=== PATIENT | male | born 1985 | race Hispanic/Latino ===

== ENCOUNTER 2017-04-26 15:21 | Day surgery (SDC) | payer SELFPAY ==
[~2017-04-26] VITALS: Ht 160 cm; Wt 59.1 kg
[2017-04-26] VITALS (9 sets, daily range): BP systolic 117–124; BP diastolic 51–79; PULSE 58–68; RESP 14–20; O2SAT 98–100
--- NOTE | 2017-04-26 15:51 | ED.REPORT ---
HPI-Abd Pain M Under 40 Date of Service Apr 26, 2017 ED Provider: Brian Fischer DO Patient is a 31 year old male who presents to the ED complaining of periumbilical abdominal pain onset 0700 this morning. Associated symptoms include pain that radiates the right lower quadrant and nausea. He denies dysuria, urinary frequency, vomiting, diarrhea or constipation. Nursing Notes Stated Complaint: STOMACH PAIN Chief Complaint: Male Abdominal Pain Nursing Notes Reviewed: Yes Allergies: Coded Allergies: No Known Allergies (Unverified , 04/26/17) No Active Prescriptions or Reported Meds General Time Seen by MD: 15:34 Chief Complaint Abdominal pain Hx Obtained From: Patient Arrived By: Walk-in Onset Occurred: 5 - 8 hours ago Symptom Duration: Since onset Location: : Epigastric Quality: Painful Radiation: : RLQ Severity: Current: Moderate Associated with: Denies: Constipation, Diarrhea, Urinary frequency, Vomiting Recent Healthcare: No recent doctor visit, No recent hospitalization Similar Sx Previous: No Past Medical History Past Medical History none reported Past Surgical History none reported Smoking History Never Smoker Social History Alcohol Use: Denies alcohol use Drug Use: Denies drug use Other Social History: Good social support Ambulatory Status Independent Review of Systems Constitutional: Denies: Chills, Fever Respiratory: Denies: Non-productive cough, Shortness of breath GI: Reports: Nausea, Denies: Constipation, Diarrhea, Vomiting Male: Denies Dysuria, Denies Urinary frequency Complete sys rev & neg: except as marked. Physical Exam Initial Vital Signs Vital Signs (First) Date Time Temp Pulse Resp B/P Pulse Ox O2 Delivery O2 Flow Rate FiO2 04/26/17 15:24 36.6 63 16 124/79 100 Room Air Initial VS: Reviewed General/Constitutional: Awake, Alert Respiratory / Chest: Atraumatic, Breath sounds NL, Breath sounds = bilat, No respiratory distress Cardiovascular: Heart rate NL, Regular rhythm, Heart sounds NL Abdomen: Atraumatic, Soft Tenderness/Guarding/Rebound: Positive: Tender RLQ... Back: Atraumatic, Full range of motion Head / Eyes: Atraumatic, Normocephalic, PERRL, EOMI Neurologic: Oriented X3, Speech NL, No motor deficits, No sensory deficits Skin: Atraumatic, Color NL, No rash, Warm, Dry Psychiatric: Affect NL, Mood NL Interpretation & Diagnostics Lab Results Interpretation Result Diagram: 04/26/17 1544 04/26/17 1544 Test 04/26/17 15:40 04/26/17 15:44 04/26/17 15:45 Hold Urine Received (Received) White Blood Count 13.9th/mm3 (3.8-10.1) Red Blood Count 4.85mil/mm3 (4.40-5.80) Hemoglobin 14.4g/dL (13.8-17.2) Hematocrit 41.3% (41.0-50.0) Mean Corpuscular Volume 85.2fL (81-100) Mean Corpuscular Hemoglobin 29.7pg (27.0-35.0) Mean Corpuscular Hemoglobin Concent 34.9% (32.0-37.0) Red Cell Distribution Width 12.6% (12.3-15.4) Platelet Count 237bil/L (150-400) Neutrophils (%) (Auto) 83.6% (40-74) Lymphocytes (%) (Auto) 10.0% (14-46) Monocytes (%) (Auto) 6.1% (4-12) Eosinophils (%) (Auto) 0.1% (0-5) Basophils (%) (Auto) 0.1% (0-3) Sodium Level 137mEq/L (134-144) Potassium Level 4.0mEq/L (3.5-5.2) Chloride Level 102mEq/L (97-108) Carbon Dioxide Level 20mmol/L (18-29) Blood Urea Nitrogen 18mg/dL (6-20) Creatinine 0.73mg/dL (0.76-1.27) Estimat Glomerular Filtration Rate 135mL/min (>59) Glucose Level 128mg/dL (60-99) Calcium Level 9.6mg/dL (8.5-10.1) Magnesium Level 2.0mg/dL (1.6-2.6) Total Bilirubin 0.3mg/dL (0.0-1.2) Aspartate Amino Transf (AST/SGOT) 25U/L (0-50) Alanine Aminotransferase (ALT/SGPT) 17U/L (0-44) Alkaline Phosphatase 70U/L (25-150) Total Protein 7.6g/dL (6.4-8.4) Albumin 4.6g/dL (3.4-5.0) Lipase 26U/L (13-60) Hold Hsieh Top Tube Received (Received) CT Abd / Pelvis Interpretation IMPRESSION: 1. The tip of the appendix is prominently enlarged (1.2 cm) with a more proximal appendicolith present. No surrounding inflammation is identified. However, mucosal enhancement of the appendix is seen. These findings are suspicious for an early tip appendicitis and clinical correlation is recommended. 2. No free fluid, fluid collection or free air. 3. Mild small bowel ileus. No bowel obstruction. 4. Low attenuation lesions within the liver probably represent hemangiomas. However, dedicated contrast-enhanced CT or MRI is recommended for further evaluation. Dictated by: Clinton Leblanc M.D. on 04/26/2017 at 16:09 Approved by: Clinton Leblanc M.D. on 04/26/2017 at 16:18 Interpretation / Wet Read by: Interpret - Radiologist Re-Eval/Medical Decision Re-Evaluation/Progress : Time of Eval: 17:20 Re-Evaluation/Progress Note: Discussed CT results and plan for admit. Patient understands and agrees to plan. All questions were addressed. Consultation : Referral / Consult Name: Timoteo Davis MD Consulted With: Surgeon Call Returned at: 17:36 Lapidary Apprentice: Agrees with eval, Agrees with plan, Accepts admit Counseled Regarding: Diagnosis, Lab results, Need for admission Patient Discharge & Departure Primary Impression: Appendicitis Appendicitis type: acute appendicitis Acute appendicitis type: unspecified acute appendicitis type Qualified Code: K35.80 - Unspecified acute appendicitis Disposition: ADMITTED TO HOSPITAL Discharge Condition All VS Reviewed: Yes Condition: Stable Scribe Attestation Portions of this note were transcribed by Hazel Winters. I, Dr. Kian Cook personally performed the history, physical exam and medical decision-making; I reviewed and confirmed the accuracy of the information in the transcribed note. Signed by: Harsh Mullen, 04/26/17 and Brian Rick DO Apr 26, 2017 15:51 Jeane Winters Apr 26, 2017 16:00
[2017-04-26 15:56] LABS: BASOPHILS % (AUTO) 0.1 % (0-3); EOSINOPHILS % (AUTO) 0.1 % (0-5); MONOCYTES % (AUTO) 6.1 % (4-12); Mean Corpuscular Hemoglobin 29.7 pg (27.0-35.0); Mean Corpuscular Volume 85.2 fL (81-100); NEUTROPHILS % (AUTO) 83.6 % (40-74); Platelet Count 237 bil/L (150-400)
[2017-04-26] MEDS ORDERED: Promethazine Inj 25 MG in 0.9% Sodium Chloride-Pha MIX 100 ML IV ONE (16:00)
[2017-04-26] MEDS ORDERED: Ketorolac 15 mg/mL Inj IVPUSH ONE (16:00)
[2017-04-26] MEDS ORDERED: Iohexol 300 mg/mL 30 mL Inj PO ONE (16:00)
[2017-04-26] MEDS ORDERED: 0.9% Sodium Chloride 1,000 ML IV ONE (16:00)
--- NOTE | 2017-04-26 17:20 | DRSVH ---
PROCEDURE: CT ABDOMEN AND PELVIS WITH CONTRAST ([id number]) INDICATIONS: rlq pain TECHNIQUE: After the administration of oral and intravenous contrast, 5 mm thick sections acquired from the diap hragms to the symphysis. 5 mm thick coronal and sagittal reformats were performed. For radiation do se reduction, the following was used: automated exposure control, adjustment of mA and/or kV accordi ng to patient size. COMPARISON: None. FINDINGS: Image quality: Excellent. ABDOMEN: Lung bases: Lung bases are clear. Heart size is normal. Solid organs: The liver is normal in size. There is a peripherally enhancing lesion identified withi n the medial segment of the left hepatic lobe at the level of the flako hepatis that measures 1.6 x 1 .3 cm (image 15, series 2). A vague area of low attenuation along the inferior tip of the liver also is present within the left hepatic lobe that measures 10 mm in diameter, but is not adequately evalu ated. The gallbladder is not enlarged. The spleen, pancreas, adrenals, and kidneys are within preethi l limits. Peritoneum and bowel: The stomach, duodenum, and small bowel loops are nondilated. However, multiple borderline prominent fluid-filled small bowel loops are identified. There is moderate residual stoo l identified throughout the colon. There is no bowel obstruction. There is an appendicolith identif ied near the tip of the appendix with the tip of the appendix noted to be dilated up to 1.2 cm (image 56 and 57: series 2). Mucosal enhancement of the appendix is present. No significant inflammation is seen within the adjacent mesentery. No free fluid, loculated fluid collection or free air is iden tified. Nodes and vessels: No retroperitoneal or mesenteric adenopathy. Aorta and inferior vena cava are no rmal in caliber. Miscellaneous: No ventral hernias. PELVIS: Genitourinary: The urinary bladder is moderately distended. No significant bladder wall thickening i s evident. There is mild heterogeneity of the prostate gland. Miscellaneous: No inguinal hernias or adenopathy. No free fluid or loculated fluid collection is id entified. Bones: No suspicious bony lesions. No vertebral body compression fractures. IMPRESSION: 1. The tip of the appendix is prominently enlarged (1.2 cm) with a more proximal appendicolith prese nt. No surrounding inflammation is identified. However, mucosal enhancement of the appendix is seen . These findings are suspicious for an early tip appendicitis and clinical correlation is recommende d. 2. No free fluid, fluid collection or free air. 3. Mild small bowel ileus. No bowel obstruction. 4. Low attenuation lesions within the liver probably represent hemangiomas. However, dedicated cont rast-enhanced CT or MRI is recommended for further evaluation. Dictated by: Clinton Leblanc M.D. on 04/26/2017 at 16:09 Approved by: Clinton Leblanc M.D. on 04/26/2017 at 16:18
[2017-04-26] MEDS ORDERED: Piperacillin-Tazo 3.375 Gm Inj 3.375 GM in Dextrose 5% Minibag Plus 50 ML IV ONE (17:40)
[2017-04-26] MEDS ORDERED: 0.9% Sodium Chloride 1,000 ML IV SCH ×2 (17:50→18:26)
[2017-04-26] MEDS ORDERED: Alum-Mag Hydrox-Simeth 30 mL Suspension PO PRN (18:30)
[2017-04-26] MEDS ORDERED: Ondansetron 2 mg/mL 2 mL Inj IVPUSH PRN ×2 (18:30→20:00)
[2017-04-26] MEDS ORDERED: Succinylcholine Chloride 20 mg/mL 5 mL Inj ONE (18:41)
[2017-04-26] MEDS ORDERED: Rocuronium 10 mg/mL 5 mL Inj ONE (18:41)
[2017-04-26] MEDS ORDERED: fentaNYL-PF 50 mCg/mL 2 mL Inj ONE (18:41)
[2017-04-26] MEDS ORDERED: Glycopyrrolate 0.2 MG/ML 1mL Inj ONE (18:41)
[2017-04-26] MEDS ORDERED: Propofol 10 mg/mL 20 mL Inj ONE (18:41)
[2017-04-26] MEDS ORDERED: Neostigmine 1 mg/mL 10 mL Inj ONE (18:41)
[2017-04-26] MEDS ORDERED: Dexamethasone 4 mg/mL Inj ONE (18:41)
[2017-04-26] MEDS ORDERED: Ondansetron 2 mg/mL 2 mL Inj ONE (18:41)
--- NOTE | 2017-04-26 18:51 | HP ---
[address] [address] HISTORY AND PHYSICAL PATIENT: ALVARO FREIRE : 1985 MR#: [id number] ADMIT: 04/26/2017 JOB ID: [id number] CHIEF COMPLAINT: Appendicitis. HISTORY OF PRESENT ILLNESS: The patient is a 31-year-old male who presented to the emergency department today due to abdominal pain. The patient states that his pain started this morning after waking up. It was by his belly button and throughout the day he has been having more pain. The pain is described as constant, feels like punched in the stomach. He has never had this type of pain before. The patient does report having some nausea, but otherwise no fevers or chills and no vomiting. He denies any diarrhea. The patient last had a bowel movement today. Workup in the emergency department today showed an elevated white blood count of 13.[address] scan finding showing an enlarged tip of the appendix measuring 1.2 cm with a more proximal appendicolith. PAST MEDICAL HISTORY: None. MEDICATIONS: None. ALLERGIES: None. SOCIAL HISTORY: The patient is . He has a daughter. He lives in [place]. He does yard work. He does not smoke. FAMILY HISTORY: Positive for diabetes in his mom and appendicitis in his brother. REVIEW OF SYSTEMS: Positive for the periumbilical pain and nausea, and all other systems reviewed were negative. PHYSICAL EXAMINATION: The patient is currently in the emergency department [facility] in no acute distress. Temperature is 36.6, blood pressure 122/62, pulse of 68, and respirations 20. Head is normocephalic, atraumatic. There is no scleral icterus. Neck is supple. There is no adenopathy. Heart is in regular rate. There is no murmur. Lungs are clear bilaterally. Abdomen is nondistended. It is actually rather soft and nontender at this time. I am not sure if it is due to the pain medication, however on palpating his right lower quadrant and suprapubic location there is absolutely no tenderness. Extremities show no clubbing and no cyanosis. Neurologically, the patient is awake and alert and nonfocal on exam. The patient does speak Slovak. LABORATORY EXAMINATION: Today shows a white blood count of 13.9, hematocrit 41.3, platelet count is 237. Sodium is 137, potassium 4.0, creatinine 0.73. Total bilirubin 0.3. Lipase of 26. The CT scan report from today shows the tip of the appendix is prominently enlarged at 1.2 cm with a more proximal appendicolith. No surrounding inflammation is identified. These findings are suspicious for an early tip appendicitis. ASSESSMENT: This is a 31-year-old male with possible early tip appendicitis. Options were discussed with the patient and his . We will have the patient be started on IV antibiotics and we will take him to the operating room tonight for laparoscopic appendectomy, possible open. The risks of the operation were explained to the patient and his , and they understand and wish to proceed.
--- NOTE | 2017-04-26 18:59 | NUR ---
Admit nurse note Admission assessment completed in the ER. Pt. speaks enough tajik to answer basic questions, but states he may need an credit cashier for more technical medical language. He asks for his instructions to be printed in Romanian, but declines an credit cashier for the basic assessment questions. NKA verified, pt. takes no home medications. PT. oriented to room and call summers. Declines nonslip socks. Pt. has minimal health history and denies pain or other needs at present.
[2017-04-26] MEDS ORDERED: Lactated Ringer's 500 ML IV PRN (20:00)
[2017-04-26] MEDS ORDERED: Lactated Ringer's 1,000 ML IV SCH (20:00)
[2017-04-26] MEDS ORDERED: Atropine 0.4 mg/mL Inj IVPUSH PRN (20:00)
[2017-04-26] MEDS ORDERED: HYDROmorphone 1 mg/mL Inj IVPUSH PRN ×2 (20:00→20:45)
[2017-04-26] MEDS ORDERED: Labetalol 5 mg/mL 4 mL Inj IV PRN (20:00)
[2017-04-26] MEDS ORDERED: EPHEDrine Sulfate 50 mg/mL Inj IVPUSH PRN (20:00)
[2017-04-26] MEDS ORDERED: fentaNYL-PF 50 mCg/mL 2 mL Inj IVPUSH PRN (20:00)
[2017-04-26] MEDS ORDERED: Phenylephrine 10,000 mCg/mL Inj IVPUSH PRN (20:00)
[2017-04-26] MEDS ORDERED: MetoCLOpramide 5 mg/mL 2 mL Inj IVPUSH PRN (20:00)
[2017-04-26] MEDS ORDERED: Bupivacaine-MPF 0.5% W/EPI 30 mL Inj INFILTRATE ONE (20:13)
--- NOTE | 2017-04-26 20:13 | PCM.HPANE ---
Patient Data Surgeon Admitting Provider:Timoteo Davis MD Attending Provider:Timoteo Davis MD Primary Care Physician:Nopcp Other Provider: Reason for Visit Appendicitis Ht/WT & BMI Height (Feet): 5 Height (Inches): 3 Weight (Kilograms): 59.1 Body Mass Index Allergies Coded Allergies: No Known Allergies (Unverified , 04/26/17) Past Anesthesia History Anesthesia History: Denies:: Abnormal Airway, Anesthesia Reactions, Difficult Intubation, Fam Anesthesia Reaction, Fam Malignant Hypertherm, Malignant Hyperthermia Diabetes History Hx Diabetes?: No MRSA MRSA: No Medications No Active Prescriptions or Reported Meds History History of ENT Problems?: No HEENT History: Denies:: Abnormal Airway Cataracts Difficult Intubation Dysphagia Glaucoma Hearing Problem Sinus Problem TMJ Denture Type: None Teeth Condition: Within Normal Limits Hx of Heart Problems?: No Cardiovascular History: Denies:: AICD Abdominal Aortic Aneurism Atrial Fibrillation Cardiac Surgery Chest Pain Congestive Heart Failure Coronary Artery Disease Edema Heart Murmur Hypertension Irregular Heartbeat Pacemaker Peripheral Vascular Rheumatic Fever Thrombophlebitis Valvular Heart Disease Hx of Respiratory Problem?: No Respiratory History: Denies:: Asthma COPD Chest Surgery Cough Dyspnea Emphysema Hemoptysis Oxygen Administration Pneumonia Pulmonary Embolism Tuberculosis Use of C-PAP Machine Use of Inhalers / NEBS Hx Neurologic Problems?: No Neurological History: Denies:: Alzheimer's Disease CVA Dementia Dizziness Headaches Multiple Sclerosis Parkinson's Disease Peripheral Neuropathy Seizures TIA Hx of GI Problems?: No Gastrointestinal History: Denies:: Cirrhosis Diverticulitis Gall Bladder Disease Gastroesphageal Reflux Gastrointestinal Bleeding Heartburn Hepatitis Hiatal Hernia Liver Disease Rectal Bleeding Hx of Problems?: No Genitourinary History: Denies:: HX of Hemodialysis Kidney Stones Urinary Tract Infection HX of Peritoneal Dialysis: No Male Hx: Denies:: Prostate Problems Scrotal Mass Testicular Surgery Skin History: Denies:: History Skin Disorders? Pressure Ulcers Hx Musculoskeletal Problems?: No Musculoskeletal History: Denies:: Back Injury Degenerative Joint Fibromyalgia Joint Replacement Musculoskeletal Trauma Myasthenia Gravis Osteoarthritis Rheumatoid Arthritis Systemic Lupus Hx of Psycho/Social Problems?: No Psycho Social History: Denies:: Anxiety Bipolar Disorder Hx Depression Suicide Attempt Hx Surgeries?: No Hx Any Other Health Problems?: No Other History: Denies:: Cancer Endocrine Disease Hospitalization Thyroid Disease History Blood Transfusions: Positive for:: Accept Blood Products? Denies:: Blood Transfuse Reaction Blood Transfusions Hx Diabetes: No Hx Alcohol Use: NoHx Substance Use: No Smoking Status: Never Smoker Have You Smoked inLast 12 mo: No Stop/Bang Treated for Sleep Apnea?: No Do You Have a CPAP Machine?: No S-Snoring: Do You Snore Loudly: No T-Tired: feel tired, fatigued: No O-Obsered: Observed not breath: No P-Blood Pressure: treated: No B- Body Mass Index > 35 kg/m2: No A- Age over 50: No N- Neck Large Circumference: No G- Gender Male: Yes HERMES Total Score: 1 Risk Assessment Category Category 1A: Patient has history of documented sleep apnea, and HAS NOT received any narcotic, sedative or anesthesia administration during this stay. Category 1B: Patient has history of documented sleep apnea, and HAS received any narcotic , sedative or anesthesia administration during this stay Category 2: Patient has SUSPECTED Obstructive Sleep Apnea, and HAS received any narcotic , sedative or anesthesia administration during this stay. Category 3: Patient has SUSPECTED Obstructive Sleep Apnea and HAS NOT received narcotic, sedative or anesthesia administration during this stay. Category 4: Outpatient in Procedural Areas with known sleep apnea or who screen positive for High Risk via the STOP/BANG questionnaire. Exam Exam Vital Signs Vital Signs Date Time Temp Pulse Resp B/P Pulse Ox O2 Delivery O2 Flow Rate FiO2 04/26/17 18:33 36.8 58 16 117/61 100 Room Air 04/26/17 17:15 36.6 68 20 122/62 100 Room Air 04/26/17 15:24 36.6 63 16 124/79 100 Room Air General Appearance: Alert, Oriented X3, Cooperative, No Acute Distress HEENT/AIRWAY: MP 2, Neck Movement (FROM), Mouth Opening (3 FBMO) Lungs: Clear to Auscultation, Normal Air Movement Heart: Exam Unremarkable, Regular Rate/Rhythm, No Murmurs/Rubs/Gallops Meds/Labs/Diagnostics Admission Meds Current Medications Sodium Chloride (Normal Saline) 1,000 ml @ 0 mls/hr Q0M ONCE IV Last administered on 04/26/17 16:06; Start 04/26/17 at 16:00; Stop 04/26/17 at 16:01 ; Status DC Iohexol 9000 mg 9,000 mg ONCE ONCE PO Last administered on 04/26/17 16:06; Start 04/26/17 at 16:00; Stop 04/26/17 at 16:01; Status DC Promethazine HCl/ Sodium Chloride (Phenergan Inj/ Normal Saline PHARMACY TO MIX ) 100.5 ml @ 301.5 mls/ hr ONCE ONCE IV Last administered on 04/26/17 16:21 ; Start 04/26/17 at 16:00; Stop 04/26/17 at 16:19; Status DC Ketorolac Tromethamine 15 mg 15 mg ONCE ONCE IVPUSH Last administered on 16:06; Start 04/26/17 at 16:00; Stop 04/26/17 at 16:01; Status DC Piperacillin Sod/ Tazobactam Sod 3.375 gm/Dextrose/ Water 50 ml @ 100 mls/hr ONCE ONCE IV Last administered on 04/26/17 18:06; Start 04/26/17 at 17:40; Stop 04/26/17 at 18:09; Status DC Sodium Chloride (Normal Saline) 1,000 ml @ 200 mls/hr Q5H IV Last administered on 04/26/17 18:06; Start 04/26/17 at 17:50 Labs Test 04/26/17 15:40 04/26/17 15:44 04/26/17 15:45 Hold Urine Received (Received) White Blood Count 13.9th/mm3 (3.8-10.1) Red Blood Count 4.85mil/mm3 (4.40-5.80) Hemoglobin 14.4g/dL (13.8-17.2) Hematocrit 41.3% (41.0-50.0) Mean Corpuscular Volume 85.2fL (81-100) Mean Corpuscular Hemoglobin 29.7pg (27.0-35.0) Mean Corpuscular Hemoglobin Concent 34.9% (32.0-37.0) Red Cell Distribution Width 12.6% (12.3-15.4) Platelet Count 237bil/L (150-400) Neutrophils (%) (Auto) 83.6% (40-74) Lymphocytes (%) (Auto) 10.0% (14-46) Monocytes (%) (Auto) 6.1% (4-12) Eosinophils (%) (Auto) 0.1% (0-5) Basophils (%) (Auto) 0.1% (0-3) Sodium Level 137mEq/L (134-144) Potassium Level 4.0mEq/L (3.5-5.2) Chloride Level 102mEq/L (97-108) Carbon Dioxide Level 20mmol/L (18-29) Blood Urea Nitrogen 18mg/dL (6-20) Creatinine 0.73mg/dL (0.76-1.27) Estimat Glomerular Filtration Rate 135mL/min (>59) Glucose Level 128mg/dL (60-99) Calcium Level 9.6mg/dL (8.5-10.1) Magnesium Level 2.0mg/dL (1.6-2.6) Total Bilirubin 0.3mg/dL (0.0-1.2) Aspartate Amino Transf (AST/SGOT) 25U/L (0-50) Alanine Aminotransferase (ALT/SGPT) 17U/L (0-44) Alkaline Phosphatase 70U/L (25-150) Total Protein 7.6g/dL (6.4-8.4) Albumin 4.6g/dL (3.4-5.0) Lipase 26U/L (13-60) Hold Hsieh Top Tube Received (Received) Plan Impression Patient chart reviewed, patient interviewed and anesthestic plan with risks, benefits, and alternatives discussed, and informed consent obtained. NPO per Anesth. Guidelines: Yes ASA Physical Status: ASA1 Plus Emergency Anesthetic Plan: GA Bene/Risks/Altern/Consents: Yes HP Complete Prior to Induction: Yes Lawrence Nichols MD Apr 26, 2017 19:29
[2017-04-26] MEDS ORDERED: HYDROcodone-APAP 5-325 mg Tablet PO PRN (20:40)
[2017-04-26] MEDS ORDERED: Sodium Chloride LOK Flush 10 mL Syringe IVFLUSH PRN (20:40)
--- NOTE | 2017-04-26 20:59 | PCM.ANEP1 ---
Post Anesthesia PACU Phase 1 Assessment Vital Signs Vital Signs Date Time Temp Pulse Resp B/P Pulse Ox O2 Delivery O2 Flow Rate FiO2 04/26/17 20:51 36.9 68 17 121/51 100 Simple Mask 9 04/26/17 18:33 36.8 58 16 117/61 100 Room Air 04/26/17 17:15 36.6 68 20 122/62 100 Room Air 04/26/17 15:24 36.6 63 16 124/79 100 Room Air Anesthetic Administered: GA Level of Alertness: Awake, talking NAVARRO's with Equal Strength: Yes Pain: No Nausea or Vomiting: No CV Function & Hydration Stable: No Airway Device: N/A Oxygen Delivery: Simple Mask Lungs: Clear to Auscultation, Normal Air Movement Dermatome Level: Full Sensation PACU Phase 2 Assessment Complications: No Follow up Care: N/A Patient Instructions Provided: N/A Lawrence Nichols MD Apr 26, 2017 20:59
--- NOTE | 2017-04-26 21:19 | OP ---
[address] [address] OPERATIVE REPORT PATIENT: ALVARO FREIRE : 1985 MR#: [id number] ADMIT: 04/26/2017 JOB ID: [id number] DATE OF SURGERY: 04/26/2017 SURGEON: Timoteo Davis MD. OXYACETYLENE WELDER: Rebel Webster PA-C. ANESTHESIA: General. PREOPERATIVE DIAGNOSIS(ES): Acute tip appendicitis. POSTOPERATIVE DIAGNOSIS(ES): Acute tip appendicitis. PRINCIPAL PROCEDURE: Laparoscopic appendectomy. INDICATION FOR PROCEDURE: The patient is a 31-year-old male with a 1-day history of abdominal pain and a CT scan finding consistent with acute tip appendicitis. PRINCIPAL FINDING: The body and base of the appendix was normal. The tip was definitely dilated. Successful laparoscopic appendectomy. PROCEDURE COURSE: The patient was brought to the operating table and was provided with general anesthesia. The patient was given IV antibiotics in the emergency department and he was provided with SCDs. A time-out was performed. The patient's abdomen was then prepped and draped in the usual sterile fashion. Next, a local anesthetic was injected into the left upper quadrant location and a 5 mm stab incision was made. A Veress needle was used to establish a pneumoperitoneum. Next, a 5 mm trocar was then placed and a laparoscope was then introduced. A second 5 mm trocar was then placed in the left lateral abdomen and a 3rd 12 mm trocar was then placed in the left lower quadrant. The appendix was long and it draped into the pelvis. The tip was dilated with the body and base normal. Next, a window was then made in the mesoappendix adjacent to the base and using an endoscopic stapler, the base of the appendix was then transected. The mesoappendix was taken using electrocautery. The specimen was then placed into the EndoCatch bag and removed from the patient. The staple line was examined and it was intact. There were no signs of arterial bleeding from the mesoappendix. Irrigation of the right lower quadrant and of the pelvis was carried out and excess fluid was aspirated. Next, we turned our attention to the left lower quadrant trocar site. The fascial defect there was then reapproximated using 0 Vicryl suture using the Endo Close device. Next, CO2 was allowed to escape and all the trocars were then removed from the patient. Skin edges were then reapproximated using absorbable sutures. Steri-Strips and sterile dressing was then placed over each wound. By the end of the procedure, needle counts and sponge counts were correct. The assistance from a surgical PA was critical in camera driving and in completion of the case. COMPLICATIONS: None.
--- NOTE | 2017-04-26 22:00 | NUR ---
Post Op Pt. arrived on floor at 2144. Pt. was very sleepy, but oriented to surroundings. Pt.'s peripheral IV intact and patent. Pt's bandaids c/d/i. SCD's present on pt., and turned on. Significant other in room. Will continue to monitor.
[2017-04-27 00:29] VITALS: BP 109/53; PULSE 74; RESP 18; O2SAT 98
[2017-04-27] MEDS ORDERED: Piperacillin-Tazo 3.375 Gm Inj 3.375 GM in Dextrose 5% Minibag Plus 50 ML IV SCH (01:00)
[2017-04-27 05:18] VITALS: BP 96/53; PULSE 63; RESP 16; O2SAT 99
[2017-04-27 06:18] LABS: Mean Corpuscular Hemoglobin 29.6 pg (27.0-35.0); Mean Corpuscular Volume 86.6 fL (81-100)
[2017-04-27 10:11] VITALS: BP 103/50; PULSE 60; RESP 16; O2SAT 99
--- NOTE | 2017-04-27 11:59 | PCM.PNSURG ---
Subjective Date of Service: Apr 27, 2017 Date of Service: Apr 27, 2017 Visit Information: Reason for Visit Appendicitis Surgery/Surgery Date Post-Op Day # 1 s/p lap appy Date of Admission: Hospital Day # Subjective: Saw patient today in his hospital room with his . He reports flatus but no bm. He is tolerating a diet without nausea or vomiting. Notes some dysuria that is new. Denies subjective fevers or chills. Abdominal pain level is acceptable to patient. Postop General: Other (left sided inguinal pain with voiding) Gastrointestinal: Tolerating Oral Feedings, No N/V, Passing Flatus Pain Management: PO Postop Activity: Ambulating Independently Objective Objective well developed male in no apparent distress Vital Sign- Last 8 Hours Date Time Temp Pulse Resp B/P Pulse Ox O2 Delivery O2 Flow Rate FiO2 04/27/17 10:11 36.5 60 16 103/50 99 Room Air 04/27/17 05:18 36.6 63 16 96/53 99 Room Air Intake and Output- Last 8 Hour 04/27/17 Cumulative From/Thru 07:00 04/26/17 15:24 - 04/27/17 05:38 Intake Total 150 ml 1950 ml Output Total 375 ml 375 ml Balance -225 ml 1575 ml Intake Oral 100 ml 100 ml IV Total 50 ml 1850 ml Output Urine Total 375 ml 375 ml # Bowel Movements 0 0 General: Alert, Cooperative, No Acute Distress Lungs: Clear to Auscultation Heart: Regular Rate/Rhythm Abdomen: Soft, Appropriately tender, Non-distended, Normoactive bowel tones, Other (non tender left inguinal region without masses. No CVA tenderness.) SURGICAL WOUND : Wound Location/Description 3 left sided abdominal incision sites. Wound General Appearence: Steri Strips, Intact, Well Approximated, No Erythema, No Discharge Dressing & Drainage Status: Intact Catheters: None Result Diagram: 04/27/17 0540 04/26/17 1544 Diagnostics: 9600 leukocytes Assessment & Plan Impression post operative day 1 s/p laparoscopic appendectomy Left inguinal pain with urination Problems: Plan ADAT UA checked and negative for blood, nitrates and leukocytes. Discharge to home with f/u in 2 weeks with [facility] Brent Saunders PA-C Apr 27, 2017 11:59
[2017-04-27 12:58] LABS: APPEARANCE,URINE HAZY (CLEAR,HAZY); COLOR,URINE STRAW (YELLOW); OCCULT BLOOD,URINE NEGATIVE (NEGATIVE)
[2017-04-27 12:59] LABS: UROBILINOGEN,URINE NORMAL (NORMAL)
[2017-04-27] MEDS ORDERED: OXYC1TAB24 PO (13:38)
--- NOTE | 2017-04-27 13:45 | PCM.DISURG ---
Surgical Discharge Instruction Date of Service Apr 27, 2017 Dates of Hospitalization Date of Hospital Admission Apr 26, 2017 Providers Admitting Physician: Primary Care Physician: Nopcp Attending Physician: Timoteo Davis MD Discharge Diagnosis Discharge Diagnosis Tip appendicitis Post Operative diagnosis Tip appendicitis Diet Discharge Diet: No restrictions Activity Discharge Activity-General: Try not to overdue, Balance rest and activity, Activity as pain allows, No driving while taking narcotic Dressing and Incisional Care Dressing Care: Allow Steri Stripes to fall off, Remove outer dressing after 24 hrs Hygiene: May shower, DO NOT soak incision under water, NO bathtub, hot tub or whirlpool Additional Instructions Discharge Instructions I expect the pain with urination to diminish and eventually go away in next few days. If it does not, please tell your doctor when you are seen in 2 weeks at your follow-up appointment. Please contact the General Surgery office if you notice worsening abdominal pain, redness at incisions that seems to be increasing in size, increasing pain, swelling or discharge from surgical incisions, fever or chills, nausea or vomiting. Follow Up Plan Follow Up Plan You will follow up at the General Surgery office. Mid-level Provider (F9): Rebel Webster PA-C Follow-up appointment: Weeks (2-3) Call your provider for: Fever, Chills, Shortness of breath, Increasing abdominal pain, Nausea, Vomiting, Wound redness, Increasing wound pain, Warmth to touch, Discharge @ incision, pus discharge Brent Saunders PA-C Apr 27, 2017 13:45
--- NOTE | 2017-04-27 16:19 | NUR ---
Discharge Orders for discharge were received. The patient was made aware of the plan to discharge and was agreeable to go. The patient was given information and teaching regarding his diagnosis and treatment, signs and symptoms to be aware of, follow up instruction, scripts for new medications and information on these new medications. The patient signified understanding of this information, verified using the teach back method. The patient's asymptomatic IV was then removed intact and the patient was dressed in his own clothing. The patient's belongings were then gathered and he ambulated into a wheelchair which took him to the main entrance where he entered a private vehicle. At the time of discharge the patient was alert and oriented, with no compliant of nausea, out of control pain or other difficulty, surgical dressing sites clean, dry and intact.
--- NOTE | 2017-04-27 16:43 | PCM.DC.SUR ---
Discharge Summary Date of Service: Apr 27, 2017 Date of Hospital Admission: Apr 26, 2017 Date of Operation(s): Apr 26, 2017 Date of Discharge: Apr 27, 2017 at 15:24 Diagnosis at Time of Discharge Acute tip appendicitis. Problems: (1) Appendicitis Qualifiers: Appendicitis type: acute appendicitis Acute appendicitis type: unspecified acute appendicitis type Qualified Code: K35.80 - Unspecified acute appendicitis Status: Acute ICD Code: K37 Operation Laparoscopic appendectomy. Brief History and Physical: The patient is a 31-year-old male who presented to the emergency department today due to abdominal pain. The patient states that his pain started this morning after waking up. It was by his belly button and throughout the day he has been having more pain. The pain is described as constant, feels like punched in the stomach. He has never had this type of pain before. The patient does report having some nausea, but otherwise no fevers or chills and no vomiting. He denies any diarrhea. The patient last had a bowel movement today. Workup in the emergency department today showed an elevated white blood count of 13.[address] scan finding showing an enlarged tip of the appendix measuring 1.2 cm with a more proximal appendicolith. The patient is currently in the emergency department [facility] in no acute distress. Temperature is 36.6, blood pressure 122/62, pulse of 68, and respirations 20. Head is normocephalic, atraumatic. There is no scleral icterus. Neck is supple. There is no adenopathy. Heart is in regular rate. There is no murmur. Lungs are clear bilaterally. Abdomen is nondistended. It is actually rather soft and nontender at this time. I am not sure if it is due to the pain medication, however on palpating his right lower quadrant and suprapubic location there is absolutely no tenderness. Extremities show no clubbing and no cyanosis. Neurologically, the patient is awake and alert and nonfocal on exam. The patient does speak Korean. LABORATORY EXAMINATION: Today shows a white blood count of 13.9, hematocrit 41.3, platelet count is 237. Sodium is 137, potassium 4.0, creatinine 0.73. Total bilirubin 0.3. Lipase of 26. The CT scan report from today shows the tip of the appendix is prominently enlarged at 1.2 cm with a more proximal appendicolith. No surrounding inflammation is identified. These findings are suspicious for an early tip appendicitis. Consultants: None Hospital Course: The patient was seen in the ED and found to have CT findings consistent with early tip appendicitis and underwent a laparoscopic appendectomy. Please refer to the operative notes for details of the procedure. He tolerated the procedure well and was transported to his hospital room. On postoperative day number 1, he was found to have improved pain control with the exception of a new finding of left inguinal pain. A urinalysis was ordered which was normal. He was found to be able to tolerate a diet and was passing flatus but did not have a bowel movement. He was then discharged to home in stable condition. Pathology: Pending Disposition: home in stable condition. Follow-up Plan: Discharge Diet: No restrictions Discharge Activity-General: Try not to overdue, Balance rest and activity, Activity as pain allows, No driving while taking narcotic Dressing Care: Allow Steri Stripes to fall off, Remove outer dressing after 24 hrs Hygiene: May shower, DO NOT soak incision under water, NO bathtub, hot tub or whirlpool Discharge Instructions I expect the pain with urination to diminish and eventually go away in next few days. If it does not, please tell your doctor when you are seen in 2 weeks at your follow-up appointment. Please contact the General Surgery office if you notice worsening abdominal pain, redness at incisions that seems to be increasing in size, increasing pain, swelling or discharge from surgical incisions, fever or chills, nausea or vomiting. Follow Up Plan You will follow up at the General Surgery office. Mid-level Provider (F9): Rebel Webster PA-C Follow-up appointment: Weeks (2-3) Call your provider for: Fever, Chills, Shortness of breath, Increasing abdominal pain, Nausea, Vomiting, Wound redness, Increasing wound pain, Warmth to touch, Discharge @ incision, pus discharg oxyCODONE-Acetaminophen 5-325 mg (oxyCODONE-Acetaminophen 5-325 mg) 1 Each Tablet 1-2 TAB PO Q6H PRN PRN For Pain Brent Saunders PA-C Apr 27, 2017 16:43
--- NOTE | 2017-04-30 16:51 | PATH ---
SURGICAL PATHOLOGY Attending Physician:Timoteo Davis M.D. CASE STATUS: Signed Out PATIENT NAME: GAY FRIERE PID: [id number] : 1985 DATE COLLECTED:04/26/2017 00:00 SPECIMEN: Appendix CLINICAL HISTORY: APPENDICITIS 1). APPENDIX FINAL DIAGNOSIS: 1.APPENDIX: ACUTE APPENDICITIS. NO EVIDENCE OF MALIGNANCY. ICD10 K35.80 GROSS DESCRIPTION: The specimen is received in formalin, labeled with the patient's name, sublabeled as APPY, and consists of an intact appendix (length-8.6 cm, diameter-0.8 cm) with attached mesoappendix (up to 2.2 cm in depth). The resection margin is received stapled. The serosa is valdez-white, smooth and shiny. The lumen contains yellow-brown, solid, firm material and pale payan, turbid fluid. The wall is up to 0.3 cm thick. No nodules, masses or lesions are identified. Ink code: black-proximal. Section code: (A) appendix, residential sales representative. ([id number]) MICRO DESCRIPTION: See diagnosis. ICD-9 CODES: CPT CODES: 1: 68793 Electronically Signed Out Indu Ferreira MD [facility] [address], [place] [address] Technical component performed at [facility], [facility] [address], [place], [address]
== END 2017-04-27 15:24 | disposition home or self-care (01) ==
LOC: SED 15:21 → UNDOADMOB 18:40 → OSC 18:40 → SAS 18:40 → SED 19:39 → SAS 04-27 15:24
PROVIDERS: ATTEND Surgery
DX: K35.80 Unspecified acute appendicitis (principal)
CPT/HCPCS: 36415; 44970; 74177; 80053; 81000; 83690; 83735; 85025; 85027; 96361; 96365; 96375; 99285; J0330; J1100; J1885; J2405; J2543; J2550; J2710; J3010; J7030; Q9967